=== PATIENT | male | born 1945 | race Caucasian/White ===

== ENCOUNTER → 2018-06-08 | Outpatient (CLI) | payer OTHER ==
--- NOTE | ~2018-06-08 | 2DMMODE ---
[facility] [place] [address] 2 D/M-MODE ECHOCARDIOGRAM Name: FIDEL ROSENBERG I Room #: REG [facility]#: [id number] Admission: 06/08/18 Attend Phys: Sanchez Oswald MD Discharge: Date of : 43 Date of Service: 06/08/18 1228 Report #: [id number] THIS REPORT FOR: //name// APPROVED REPORT Study performed: 06/08/2018 10:39:10 EXAM: Comprehensive 2D, Doppler, and color-flow Echocardiogram Patient Location: Out-Patient Room #: Echo lab 1 BSA: 2.11 HR: 48 bpm BP: 137/83 mmHg Other Information Study Quality: Adequate Indications Syncope 2D Dimensions RVDd: 39.81 mm LVEF(%): 54.29 (>50%) IVSd: 12.25 (7-11mm) LVOT Diam: 21.27 (18-24mm) LVDd: 47.33 mm PWd: 11.90 (7-11mm) Ascending Ao: 34.08 (22-36mm) LVDs: 34.04 (25-40mm) Aortic Root: 30.14 mm IVC: 16.00 mm Coles's LVEF: 54.29 % Volumes Left Atrial Volume (Systole) Single Plane 4CH: 30.26 mL Single Plane 2CH: 45.91 mL LA ESV Index: 21.00 mL/m2 Aortic Valve LVOT Max P.49 mmHg LVOT Max V: 1.27 m/s MARKOS Vmax: 2.58 cm2 Mitral Valve E/A Ratio: 1.0 MV Decel. Time: 203.08 ms MV E Max Cruz.: 0.90 m/s MV A Cruz.: 0.94 m/s [facility] [address] [place] [address] 2 D/M-MODE ECHOCARDIOGRAM Name: CHETFIDEL I Room #: [facility]#: [id number] Admission: 06/08/18 Attend Phys: Sanchez Oswald MD Discharge: Date of : 43 Date of Service: 06/08/18 1228 Report #: [id number] MV PHT: 58.89 ms IVRT: 124.57 ms Pulmonary Valve PV Peak Cruz.: 1.04 m/s PV Peak Gr.: 4.31 mmHg Pulmonary Vein P Vein S: 0.37 m/s P Vein A: 0.25 m/s P Vein D: 0.34 m/s P Vein S/D Ratio: 1.09 Tricuspid Valve TR Peak Cruz.: 2.42 m/s TR Peak Gr.: 23.47 mmHg PA Pressure: 29.00 mmHg Left Ventricle The left ventricle is normal size. There is normal LV segmental wall motion. There is normal left ventricular wall thickness. Left ventricular systolic function is normal. The left ventricular ejection fraction is within the normal range. LVEF is 55-60%. Grade I - abnormal relaxation pattern. Right Ventricle The right ventricle is normal size. The right ventricular systolic function is normal. Atria The left atrium size is normal. Right atrium is at the upper limits of normal. Aortic Valve The aortic valve is normal in structure. Aortic valve is calcified. No aortic regurgitation is present. There is no aortic valvular stenosis. Mitral Valve The mitral valve is normal in structure. Mild mitral annular calcification. Trace to mild mitral regurgitation. No evidence of mitral valve stenosis. Tricuspid Valve The tricuspid valve is normal in structure. There is trace tricuspid regurgitation. Estimated PAP 29 mmHg. There is no pulmonary hypertension. [facility] [address] [place] [address] 2 D/M-MODE ECHOCARDIOGRAM Name: FIDEL ROSENBERG I Room #: REG [facility]#: [id number] Admission: 06/08/18 Attend Phys: Sanchez Oswald MD Discharge: Date of : 43 Date of Service: 06/08/18 1228 Report #: [id number] Pulmonic Valve The pulmonary valve is normal in structure. There is no pulmonic valvular regurgitation. Great Vessels The aortic root is normal in size. IVC is normal in size and collapses with >50% inspiration Pericardium There is no pericardial effusion. <Conclusion> The left ventricle is normal size. There is normal left ventricular wall thickness. Left ventricular systolic function is normal. Grade I - abnormal relaxation pattern. The right ventricle is normal size. The left atrium size is normal. Aortic valve is calcified. There is no aortic valvular stenosis. Mild mitral annular calcification. Trace to mild mitral regurgitation. There is trace tricuspid regurgitation. Estimated PAP 29 mmHg. There is no pulmonary hypertension. <ELECTRONICALLY SIGNED> By: Sanchez Oswald MD 06/08/18 1228 1228 1228 Sanchez Oswald MD /INF
== END ==
LOC: CV 10:17
DX: I34.0 Nonrheumatic mitral (valve) insufficiency (principal); I70.0 Atherosclerosis of aorta; I34.8 Other nonrheumatic mitral valve disorders

== ENCOUNTER → 2020-06-06 | Outpatient (CLI) | payer OTHER | LOC: SJCVCIMAG 08:52 | PROVIDERS: ATTEND Internal Medicine Cardiovascular Disease | DX: I08.3 Combined rheumatic disorders of mitral, aortic and tricuspid valves (principal); I44.0 Atrioventricular block, first degree; R94.31 Abnormal electrocardiogram [ECG] [EKG]; I45.2 Bifascicular block; I10 Essential (primary) hypertension; I73.9 Peripheral vascular disease, unspecified; E78.00 Pure hypercholesterolemia, unspecified; I71.4 Abdominal aortic aneurysm, without rupture; Z95.828 Presence of other vascular implants and grafts; Z79.899 Other long term (current) drug therapy; Z87.891 Personal history of nicotine dependence ==

== ENCOUNTER → 2020-06-13 | Outpatient (CLI) | payer OTHER ==
[2020-06-13 10:44] LABS: CREATININE 1.1 mg/dL (0.7-1.3)
== END ==
LOC: CAT 10:00
PROVIDERS: ATTEND Internal Medicine Cardiovascular Disease
DX: Z01.812 Encounter for preprocedural laboratory examination (principal); I71.4 Abdominal aortic aneurysm, without rupture

== ENCOUNTER → 2020-10-10 | Outpatient (CLI) | payer OTHER | LOC: SJCVC 10:53 | PROVIDERS: ATTEND Internal Medicine Cardiovascular Disease | DX: R94.31 Abnormal electrocardiogram [ECG] [EKG] (principal); I45.2 Bifascicular block; I10 Essential (primary) hypertension; R00.1 Bradycardia, unspecified; E78.5 Hyperlipidemia, unspecified; R60.0 Localized edema; Z98.890 Other specified postprocedural states; Z86.79 Personal history of other diseases of the circulatory system; Z86.73 Personal history of transient ischemic attack (TIA), and cerebral infarction without residual deficits; Z95.818 Presence of other cardiac implants and grafts; Z87.891 Personal history of nicotine dependence ==